=== PATIENT | female | born 1940 | race Caucasian/White ===

== ENCOUNTER → 2016-07-15 | Outpatient (CLI) | payer OTHER | LOC: RAD 01:02 | DX: Z12.31 Encounter for screening mammogram for malignant neoplasm of breast (principal) ==

== ENCOUNTER → 2017-07-26 | Outpatient (CLI) | payer OTHER | LOC: RAD 01:58 | DX: Z12.31 Encounter for screening mammogram for malignant neoplasm of breast (principal) ==

== ENCOUNTER → 2018-08-28 | Outpatient (CLI) | payer OTHER | LOC: BC 09:13 | DX: Z12.31 Encounter for screening mammogram for malignant neoplasm of breast (principal) ==